=== PATIENT | female | born 1970 | race Caucasian/White ===

== ENCOUNTER → 2016-12-11 | Outpatient (CLI) | payer OTHER ==
--- NOTE | 2016-12-11 08:47 | MRI ---
EXAM DESCRIPTION: MR CERVICAL SPINE WITHOUT IV CONTRAST CLINICAL HISTORY: RADICULOPATHY neck and left arm pain COMPARISON: None Available. TECHNIQUE: Multi plantar multi sequence noncontrast imaging. FINDINGS: There is good alignment of the cervical spine. There is no vertebral abnormality. Craniocervical junction and the cord are unremarkable. No extra spinous abnormality is detected. C2-3: Unremarkable. C3-4: Unremarkable. C4-5: The disc is desiccated. Loss of disc height is noted. Mild endplate degenerative changes are observed. A central and left-sided 2 mm disc bulge is observed. The a exam demonstrates mild left neural foraminal narrowing as result of uncovertebral joint arthritis. The right neural foramen is patent. C5-6: The disc is desiccated. Loss of disc height is observed. Endplate degenerative changes are observed. A 2 mm right disc osteophyte complex is observed. It impacts the anterior cord. Right neural foraminal narrowing is observed is result of facet joint and uncovertebral joint arthritis. The left neural foramen is patent. C6-7: The disc is desiccated. Endplate degenerative changes are observed. A central and right-sided 2.4 mm disk bulge is observed. The neural foramina are patent. C7-T1: Unremarkable. IMPRESSION: 1. A 2 mm right-sided disc osteophyte complex is seen at the C5-6 level impacting the anterior cord. Some right neural foraminal narrowing is also observed. 2. A 2.4 mm right-sided disc bulge is observed at the C6-7 level. 3. A central and left-sided 2 mm disc bulge is observed at the C4-5 level. There is left neural foraminal narrowing as result of uncovertebral joint arthritis. Electronically signed by: Alvaro Edwards MD 12/11/2016 08:45
== END ==
LOC: MRI 07:05
PROVIDERS: ATTEND Physical Medicine & Rehabilitation
DX: M54.12 Radiculopathy, cervical region (principal); M25.78 Osteophyte, vertebrae; M50.821 Other cervical disc disorders at C4-C5 level; M50.823 Other cervical disc disorders at C6-C7 level

== ENCOUNTER → 2017-05-28 | Outpatient (CLI) | payer OTHER | END | disposition home or self-care (01) | LOC: MRI 14:03 | PROVIDERS: ATTEND Physical Medicine & Rehabilitation | DX: M51.16 Intervertebral disc disorders with radiculopathy, lumbar region (principal); M54.5 Low back pain; M70.62 Trochanteric bursitis, left hip ==

== ENCOUNTER → 2017-08-10 | Outpatient (CLI) | payer OTHER | END | disposition home or self-care (01) | LOC: LAB.O 08:06 | PROVIDERS: ATTEND Family Medicine | DX: E78.00 Pure hypercholesterolemia, unspecified (principal); I10 Essential (primary) hypertension ==

== ENCOUNTER 2018-01-02 16:15 | Emergency (ER) | payer OTHER ==
--- NOTE | 2018-01-02 17:06 | ED.PDOC ---
History of Present Illness - General Chief Complaint: Lower Extremity Injury Stated Complaint: R foot injury Time Seen by Provider: 01/02/18 17:06 Source: patient Exam Limitations: no limitations - History of Present Illness Initial Comments: Marzena Zamora 47 y/o female stated she twisted right foot at home while cleaning her yard yesterday and today with pain on weight bearing right foot.No numbness no weakness. Occurred: yesterday Pain - Lower Extremity: moderate: Right Foot Method of Injury: twisted Improving Factors: rest Worsening Factors: movement Allergies/Adverse Reactions: Allergies NO KNOWN ALLERGY Allergy (Verified 01/02/18 17:05) Review of Systems - Review of Systems Constitutional: States: no symptoms reported EENTM: States: no symptoms reported Respiratory: States: no symptoms reported Cardiology: States: no symptoms reported Gastrointestinal/Abdominal: States: no symptoms reported Genitourinary: States: no symptoms reported Musculoskeletal: States: see HPI All other Systems: Reviewed and Negative, No Change from Baseline Past Medical History (General) - Patient Medical History Hx Hypertension: Yes Surgical History: other - hysterectomy,c spine shoulder,elbow, ankle Family Medical History - Family History Father Hx Family Hypertension: Yes Mother Family History: No Known Living Status: Still Living Physical Exam - Physical Exam General Appearance: Alert, Comfortable, No apparent distress Eyes, Ears, Nose, Throat: normal ENT inspection Neck: non-tender, full range of motion, supple Cardiovascular/Respiratory: regular rate, rhythm, no M/R/G, normal peripheral pulses Gastrointestinal/Abdominal: non-tender, no organomegaly Back: no CVA tenderness, no vertebral tenderness Thigh/Hip: normal inspection, non-tender Leg: normal inspection, non-tender Knee: normal inspection, non-tender Ankle: normal inspection, non-tender Foot: bone tenderness - right foot, limited ROM - pain right foot Neuro/Tendon: normal sensation, normal motor functions, responds to pain Mental Status: alert, oriented x 3 Progress - Progress Progress: 01/02/18 17:55 Last Vital Signs Temp 97.7 F 01/02/18 16:16 Pulse 88 01/02/18 16:16 Resp 20 01/02/18 16:16 BP 140/102 01/02/18 16:16 Pulse Ox 96 01/02/18 16:16 - EKG/XRAY/CT XRAY: right foot no fracture Departure - Departure Clinical Impression: Sprain of right foot Qualifiers: Encounter type: initial encounter Qualified Code(s): S93.601A - Unspecified sprain of right foot, initial encounter Time of Disposition: 17:57 Disposition: Discharge to Home or Self Care Departure Forms: ED Discharge - Pt. Copy, Patient Portal Self Enrollment Instructions: DI for Foot Sprain Referrals: LAURE CURRY [Primary Care Provider] - 1-2 Weeks Additional Instructions: Continue with ice pack 20 minutes 3 x a day during waking hours only until better;Elevate right foot 20 degrees at bedtime;May take ALEVE 1-2 tablets am/ pm for pain;Follow up with primary Md 01.06.2018 as needed
--- NOTE | 2018-01-02 17:19 | RAD ---
Procedure: XR FOOT 3 OR MORE VIEWS Exam Date: 01/02/2018 5:05 PM INTELLIGENCE OFFICER BASIC Ordering Provider: Oscar Brownlee Clinical Indication: injury, pain Comparison: None Findings: No fracture, focal osseous destruction, or malalignment. Joint spaces are preserved. Soft tissues are unremarkable. IMPRESSION: No acute osseous abnormality. Electronically signed by: Julissa Heredia MD 01/02/2018 5:18 PM INTELLIGENCE OFFICER BASIC
[2018-01-02 17:42] VITALS: BP 140/102; TEMP 97.7; O2SAT 96
== END 2018-01-02 18:00 | disposition home or self-care (01) ==
LOC: ER 16:15
DX: S93.601A Unspecified sprain of right foot, initial encounter (principal); X50.1XXA Overexertion from prolonged static or awkward postures, initial encounter; Y92.009 Unspecified place in unspecified non-institutional (private) residence as the place of occurrence of the external cause

== ENCOUNTER → 2019-12-08 | Outpatient (CLI) | payer OTHER | LOC: LAB.O 08:30 | PROVIDERS: ATTEND Family Medicine | DX: I10 Essential (primary) hypertension (principal); E78.00 Pure hypercholesterolemia, unspecified ==

== ENCOUNTER → 2020-07-24 | Outpatient (CLI) | payer OTHER | LOC: LAB.O 15:00 | PROVIDERS: ATTEND Family Medicine | DX: R74.8 Abnormal levels of other serum enzymes (principal) ==

== ENCOUNTER → 2020-08-12 | Outpatient (CLI) | payer BC, OTHER ==
--- NOTE | 2020-08-13 08:55 | US ---
EXAM DESCRIPTION: Abdomen,Complete: Ultrasound. CLINICAL HISTORY: 50 years FemaleABNORMAL LFT'S COMPARISON: None Available. TECHNIQUE: Transabdominal scanning: grayscale and Doppler modes.. Technically difficult study due to patient body habitus. FINDINGS: Gallbladder: normal size, shape, echogenicity; no intraluminal stones or sludge. No fluid around the gallbladder. No wall thickening. 2.3 mm. Non-tender with transducer pressure. Common bile duct: caliber 4.3 mm within normal limits. Liver: Heterogeneously increased echogenicity; limited visualization of the posterior liver and the soft tissue structures posterior to the liver. Contour liver capsule smooth where seen. No fluid around the liver. Intrahepatic biliary ducts normal caliber. Doppler hepatopedal flow and normal caliber portal vein 3 mm.. Long axis right lobe 15.7 cm. Pancreas: Not well visualized. Complete abdominal aorta: Normal caliber from the proximal segment to the distal bifurcation.. IVC: visualized and normal caliber. Right kidney: long axis measures 10.5 cm; volume 87.2 mL.. Normal cortical echogenicity.. Cortical thickness 10 mm. No echogenic stones; no hydronephrosis. Left kidney: Limited visualization. Long axis measures 10 cm; volume 157 mL. Heterogeneous increased echogenicity is in the cortex.. Normal cortical thickness. No echogenic stones; no hydronephrosis. Spleen: Normal. No focal lesions.. 9.5 cm. long axis. Other: None. IMPRESSION: 1. Technically difficult study due to patient large body habitus. Limited visualization of the pancreas left kidney and spleen. Gallbladder and common bile duct are unremarkable. 2. Heterogeneous steatosis of the liver borderline enlarged. Limited visualization of the posterior liver. Physiologic vascularity. Pancreas was not well seen as described above. Normal caliber of the abdominal aorta. 3. Thin cortex right kidney. Heterogeneous cortex of the left kidney but limited visualization. Otherwise unremarkable. Electronically signed by: Darío Christiansen MD 08/13/2020 8:54 AM CDT
== END ==
LOC: LAB 07:48
PROVIDERS: ATTEND Family Medicine
DX: R94.5 Abnormal results of liver function studies (principal)